=== PATIENT | female | born 1980 | race Caucasian/White ===

== ENCOUNTER → 2018-02-27 16:31 | Outpatient (REF) | payer MEDICAID, SELFPAY ==
[2018-03-01 11:19] LABS: Hep B Core Antibody Negative (NEGAT)
== END ==
LOC: NCHCN 16:31
PROVIDERS: PCP Family Medicine; Visit Provider Family Medicine
DX: B19.20 Unspecified viral hepatitis C without hepatic coma (principal)
CPT/HCPCS: 86704

== ENCOUNTER 2018-05-11 11:12 | Outpatient (REF) | payer MEDICAID, SELFPAY ==
[2018-05-11 14:02] LABS: HCT 43.3 % (36.0-46.0); HGB 14.6 g/dL (12.0-15.5); Mean Corp. HGB Concentration 33.7 g/dL (32.0-36.0); Mean Corpuscular Hemoglobin 31.2 pg (27.0-33.0); Mean Corpuscular Volume 92.5 fL (80-95); Mean Platelet Volume 13.2 fL (8.0-11.0); Platelet Count 120 x1000/uL (130-400); RBC 4.68 m/cumm (4.00-5.20); RBC Distribution Width 12.7 % (11.7-14.6); White Blood Cell Count 4.79 k/cumm (4.4-10.8)
[2018-05-11 14:30] LABS: ALT 17 U/L (12-78); AST 17 U/L (15-37); Albumin 3.7 g/dL (3.4-5.0); Alkaline Phosphatase 67 U/L (46-116); Anion Gap 10.2 mmol/L (3-11); BUN 7 mg/dL (7-18); Bilirubin, Total 0.9 mg/dL (0.2-1.0); CO2 27.8 mmol/L (21.0-32.0); CREATININE 0.71 mg/dL (0.55-1.02); Calcium 8.6 mg/dL (8.5-10.1); Chloride 99 mmol/L (98-107); Glucose 92 mg/dL (70-100); Potassium 3.8 mmol/L (3.5-5.1); Sodium 137 mmol/L (136-145); Total Protein 7.1 g/dL (6.4-8.2)
[2018-05-14 13:48] LABS: HCV RNA Detection Quantitative Undetected IU/mL (UNDECT)
== END 2018-05-11 11:32 ==
LOC: NCHCN 11:12
PROVIDERS: PCP Family Medicine; Visit Provider Family Medicine
DX: B19.20 Unspecified viral hepatitis C without hepatic coma (principal)
CPT/HCPCS: 80053; 85027; 87522

== ENCOUNTER 2020-03-20 21:41 | Outpatient (REF) | payer MEDICAID, SELFPAY ==
[2020-03-23 14:13] LABS: HCV RNA Qualitative Undetected (Undetected)
== END 2020-03-20 22:01 ==
LOC: NCHCN 21:41
PROVIDERS: PCP Family Medicine; Visit Provider Family Medicine
DX: B19.20 Unspecified viral hepatitis C without hepatic coma (principal)
CPT/HCPCS: 87522

== ENCOUNTER 2020-05-07 07:12 | Outpatient (CLI) | payer MEDICAID, SELFPAY ==
[2020-05-08 22:55] LABS: COVID-19 RT-PCR Result NEGATIVE (Negative)
== END 2020-05-07 07:32 ==
PROVIDERS: PCP Family Medicine; Visit Provider Otolaryngology Otolaryngology/Facial Plastic Surgery
DX: Z11.59 Encounter for screening for other viral diseases (principal); Z01.818 Encounter for other preprocedural examination
CPT/HCPCS: U0003

== ENCOUNTER 2020-05-11 06:12 | Day surgery (SDC) | payer MEDICAID, SELFPAY ==
[2020-05-11 06:13] VITALS: BP 95/65; PULSE 82; RESP 16; TEMP 36.7; O2SAT 96
[2020-05-11] MEDS: Lactated Ringers 1,000 ML 80 ML IV (06:47)
--- NOTE | 2020-05-11 07:34 | W.PM.DSUDISC ---
Discharge Plan Disposition Patient Disposition: HOME Condition: Good Discharge Details Reason For Visit: or Attending Provider: Mendez Brandon Primary Care Provider: Rome Pathak Home Meds and New Rx's Prescriptions: No Action trazodone 100 MG tablet 100 mg PO HS RF: 0 Flovent HFA 12 GM HFA aerosol inhaler 220 mcg Inhalation BID RF: 0 albuterol sulfate [ProAir HFA] 8.5 GM HFA aerosol inhaler 2 puff Inhalation Q4H PRN RF: 0 Nexplanon 68 MG implant 68 mg SQ ONCE Qty: 1 RF: 0 meloxicam 15 MG tablet 1 tab PO DAILY 30 Days Qty: 30 RF: 2 Vyvanse 30 MG capsule 70 mg PO HS RF: 0 buprenorphine-naloxone [Suboxone] 8-2 mg Film 2 film SUBLINGUAL DAILY RF: 0 Discharge Instructions Additional Instructions: see sheet Activity:: Activity as Tolerated Shower/Bathe:: 24 hours Diet:: As Tolerated DS: Diagnosis Discharge Diagnosis (1) Cyst, dermoid, face: Status: Acute
--- NOTE | 2020-05-11 08:07 | W.PM.OP ---
Date of service: 05/11/20 Time of Service: 08:00 Operative Note Operative Note DATE OF PROCEDURE: 05/11/20 PRE-OP DIAGNOSIS: Recurrent dermoid facial cyst Excision of facial cyst 2.2 cm intermediate closure SURGEON: Mendez Brandon ANESTHESIA: MAC ESTIMATED BLOOD LOSS: 1 PATHOLOGY: none sent COMPLICATIONS: None Patient was transported to: PACU Patient's condition: stable Indications: Patient with recurrent dermoid cyst of the left lateral lower lip, opted proceed with surgical removal, we proceeded with sedation based on patient preference Procedure Description: Patient was brought back to the operating suite in stable condition placed supine operative table and given IV monitored anesthesia care. 3 cc of 1% lidocaine with 1-100,000 epinephrine was injected into the left lower lip. Timeout was taken to confirm proper patient and procedure. Patient was prepped and draped in normal fashion. A 15 blade scalpel was used to excise the dermoid cyst, the cyst involve the orbicularis javi muscle, amputation at the base included bipolar cautery. Hemostasis achieved. Entire capsule was excised. Intermediate closure was performed with 4-0 Monocryl followed by 4-0 nylon. Patient tolerated the procedure well, total incision length was 2.2 cm. Stable to PACU
[2020-05-11 08:47] VITALS: BP 105/65; PULSE 55; RESP 16; TEMP 36.6; O2SAT 100
== END 2020-05-11 09:08 | disposition home or self-care (01) ==
PROVIDERS: PCP Family Medicine; Visit Provider Otolaryngology Otolaryngology/Facial Plastic Surgery
PROC: 0HB1XZZ Excision of Face Skin, External Approach (ICD-10-PCS; CPT 11443; principal; 2020-05-11 07:30)
DX: D23.0 Other benign neoplasm of skin of lip (principal); J45.909 Unspecified asthma, uncomplicated; F41.9 Anxiety disorder, unspecified
CPT/HCPCS: 11443; 12051; J0690; J2405; J2704

== ENCOUNTER 2020-09-22 15:05 | Outpatient (REF) | payer MEDICAID, SELFPAY ==
--- NOTE | 2020-09-22 14:40 | PAPFT_PTH ---
PATIENT: Germaine Mast LOC: [facility] U#:[id number] AGE/SX: 40/F ROOM: RE09/22/[address]: Azeb Kaye NP : 1980 BED: DIS: 09/22/2020 SPEC #: [id number] RECD: 09/22/20 17:25 STATUS: JAIME PICKETT #: [id number] GEM: 09/22/20 14:[address]: Azeb Kaye NP DEPT: [facility] Cytology RECD BY: Julia Yates ENTERED: 09/22/20 17:25 SP TYPE: PAPFT OTHR DR: Rome Pathak Tissues: 1 - CX/ENDOCX FOR PAP SMEARS Procedures: PAP THIN PREP/UVM Screening HPV DNA PROBE Comments: [id number] (CHLAMYDIA/GC)
[2020-09-23 14:21] LABS: Chlamydia Result Negative (Negative); GC Result Negative (Negative)
== END 2020-09-22 15:06 | disposition home or self-care (01) ==
LOC: LBN 15:05
PROVIDERS: PCP Family Medicine; Visit Provider Nurse Practitioner Women's Health
DX: R30.0 Dysuria (principal); Z11.3 Encounter for screening for infections with a predominantly sexual mode of transmission; Z12.4 Encounter for screening for malignant neoplasm of cervix; Z11.51 Encounter for screening for human papillomavirus (HPV)
CPT/HCPCS: 87077; 87491; 87591; 88142; 87086; 87186; 87624

== ENCOUNTER 2020-10-01 01:31 | Outpatient (CLI) | payer MEDICAID, SELFPAY ==
--- NOTE | 2020-10-01 09:00 | DI.MAMMO_ITS ---
EXAM: MG MAMMO SCREENING CLINICAL HISTORY: screening,Z12.39. TECHNIQUE: Bilateral full field digital CC and MLO mammographic images were obtained with 3D tomosyn thesis and utilizing computer aided detection (CAD). COMPARISON: None. Baseline study. FINDINGS: There is a lobulated noncalcified nodule right breast measuring 9 by 9 millimeters, medial of center. No malignant-appearing microcalcification groups at this location or elsewhere in either breast. No focal findings in the opposite-left breast. There is no significant architectural distortion nor skin thickening-retraction. IMPRESSION: There is a right breast nodule measuring 9 x 9 millimeters. Spot compression view and ultrasound rec ommended to determine if this is solid or cystic. BI-RADS Category 0 - Assessment Incomplete: Need additional imaging evaluation Breast Density - Category C - Heterogeneously dense Breast density Category C or D implies that the patient has dense breast tissue. Dense breast tissue can make it harder to find cancer on a mammogram. Dense breast tissue is also associated with an incr eased risk of breast cancer. This information about the result of the mammogram report was provided to the patient to raise their awareness. Use this report when you speak with the patient about their risks for breast cancer, which includes their family history. At that time, you may recommend additional screening tests (Ultrasoun d or MRI) as these tests may add significant information. A negative radiographic report should not delay biopsy if a dominant or clinically suspicious mass is present. Up to ten percent of cancers are not identified on mammography. A negative report may reinforce clinical impression. Adenosis and dense breasts may obscure an underlying neoplasm. False positive reports average 6 to 10%. Patient will receive a letter notifying them of these results.
== END 2020-10-01 01:51 ==
PROVIDERS: PCP Family Medicine; Visit Provider Nurse Practitioner Women's Health
DX: Z12.31 Encounter for screening mammogram for malignant neoplasm of breast (principal); N63.10 Unspecified lump in the right breast, unspecified quadrant
CPT/HCPCS: 77063; 77067

== ENCOUNTER 2020-10-01 02:48 | Outpatient (CLI) | payer MEDICAID, SELFPAY ==
[2020-10-02 09:34] LABS: HIV-1/2 Ag & Ab Screen Negative (Negative)
[2020-10-03 10:02] LABS: Syphilis Total Ab w/Reflex Nonreactive (Nonreactive)
== END 2020-10-01 02:49 | disposition home or self-care (01) ==
LOC: LBO 02:48
PROVIDERS: PCP Family Medicine; Visit Provider Nurse Practitioner Women's Health
DX: Z11.3 Encounter for screening for infections with a predominantly sexual mode of transmission (principal); Z11.4 Encounter for screening for human immunodeficiency virus [HIV]
CPT/HCPCS: 36415; 87389; 86780

== ENCOUNTER 2020-10-09 03:32 | Outpatient (CLI) | payer MEDICAID, SELFPAY ==
--- NOTE | 2020-10-09 14:40 | DI.MAMMO_ITS ---
EXAM: MG MAMMO SCREEN CALL BACK UNI CLINICAL HISTORY: F/U MAMMO, RT BREAST NODULE, TECHNIQUE: Mammograms were interpreted according to the usual protocol including computer analysis w [employer] CAD system, tomosynthesis and C-view imaging. COMPARISON: FINDINGS: Additional mammographic graphic views of the right breast and right breast ultrasound are interpreted in conjunction. These examinations were obtained to evaluate a medial retroareolar mass of the righ t breast noted on recent mammogram. Spot compression views confirm a fairly well-circumscribed mass as noted on the initial screening examinations. Breast ultrasound shows a taller than wide [address] in greatest diameter hypoechoic mildly heterogeneous mass located in the 2 o'clock position 2 cm from the nipple. This shows no significant internal vascular flow on Doppler evaluation. The appearance of the lesion is indeterminate for malignancy ultrasonographically. Biopsy is recomme nded which may be accomplished utilizing ultrasound-guided biopsy. IMPRESSION: Biopsy recommended for medial retroareolar right breast mass as described above. Findings were relay ed to Ashanti Koo, Nurse Practitioner. BI-RADS Category 4 - Suspicious Abnormality: Biopsy should be considered Breast Density - Category C - Heterogeneously dense
== END 2020-10-09 03:52 ==
PROVIDERS: PCP Family Medicine; Visit Provider Nurse Practitioner Women's Health
DX: Z12.31 Encounter for screening mammogram for malignant neoplasm of breast (principal); R92.8 Other abnormal and inconclusive findings on diagnostic imaging of breast; N63.12 Unspecified lump in the right breast, upper inner quadrant
CPT/HCPCS: 76642; 77063; 77067

== ENCOUNTER 2020-10-23 04:02 | Outpatient (CLI) | payer MEDICAID, SELFPAY ==
--- NOTE | 2020-10-23 | DI.US_ITS ---
EXAM: RT BREAST MASS, ULTRASOUND GUIDED CORE NEEDLE BX COMPARISON: US US BREAST RT LIMITED from 10/09/2020 TECHNIQUE: Ultrasound performed using standard protocol. FINDINGS: Sonography was provided for Dr. Ceballos during the performance of a right breast biopsy. Please ref er to the procedure report for complete details. DATA REPOSITORY:
--- NOTE | 2020-10-23 08:10 | BREAST_PTH ---
PATIENT: Germaine Mast LOC: [facility] U#:[id number] AGE/SX: 40/F ROOM: RE10/23/[address]: Shantal Ceballos MD : 1980 BED: DIS: 10/23/2020 SPEC #: [id number] RECD: 10/23/20 12:43 STATUS: JAIME REQ #: [id number] GEM: 10/23/20 08:[address]: Shantal Ceballos DEPT: Surgical Specimen RECD BY: Julia Yates ENTERED: 10/23/20 12:44 SP TYPE: Breast OTHR DR: Rome Pathak Tissues: 1 - BREAST BX NEEDLE Procedures: GROSS AND MICRO LEVEL 4 Comments: [id number]
--- NOTE | 2020-10-23 08:45 | W.PROCNOTE ---
Date of service: 10/23/20 Time of Service: 08:00 Procedure Note Date of procedure: 10/23/20 Procedure: Right Breast Core needle biopsy Surgeon/Proceduralist/Physician: Shantal Ceballos Procedure Diagnosis: Right Breast mass Procedure Indications: Mrs. Mast is a pleasant 40 year old female who underwent a screening mammogram and was noted to have a lesion. This was ultrasounded and revealed a 9 mm hypoechoic mildly heterogenous mass located at the 2 o'clock position 2 cm from the nipple. The appearance of the lesion was indeterminate for malignancy ultrasonographically. Biopsy was recommended by the radiologist. The patient is here today for the core needle biopsy under ultrasound guidance. I discussed with the patient the procedure in detail and reviewed risks and benefits. Her questions were entertained and she wished to proceed. The patient has an aunt with breast cancer. No first-degree relatives with breast cancer. She has not noted any skin changes. She does recall having some clear nipple discharge from the right and left breast a few months back. Procedure Description: Pre-op Dx: Right Breast Mass at 2 o'clock, 2 cm from the nipple Post-op Dx: same Procedure: US gided Core needle biopsy Surgeon: Demarcus Ceballos MD Anesthesia: Local anesthesia with 1% Lidocaine Blood loss: 2 cc Specimen: Core needle biopsy Complications: no immediate complications Procedure: After informed consent was obtained the patient was placed in a supine position. Us was done of the Breast and the lesion was localized by the US tech. The skin was cleaned with alcohol and infiltrated with the above local anesthetic. The skin was then prepped. An incision was made with an 11 blade. Using a 14 gauge core needle 2 specimens were removed and placed on telfa and placed in formalin. Under US guidence a small titanium clip was placed into the lesion. The skin was cleaned and dried and a band aid was applied. The patient tolerated the procedure well and there were no immediate complications.
== END 2020-10-23 04:22 ==
PROVIDERS: PCP Family Medicine; Visit Provider Surgery
DX: R92.8 Other abnormal and inconclusive findings on diagnostic imaging of breast (principal)
CPT/HCPCS: 19083; 88305; 76942

== ENCOUNTER 2021-03-19 14:40 | Outpatient (REF) | payer MEDICAID, SELFPAY ==
[2021-03-22 14:42] LABS: Chlamydia Result Negative (Negative); GC Result Negative (Negative)
== END 2021-03-19 14:41 | disposition home or self-care (01) ==
LOC: NCHCN 14:40
PROVIDERS: PCP Family Medicine; Visit Provider Physician Assistant
DX: N89.8 Other specified noninflammatory disorders of vagina (principal)
CPT/HCPCS: 87491; 87591; 87480; 87510; 87660

== ENCOUNTER 2021-09-15 00:48 | Outpatient (CLI) | payer MEDICAID, SELFPAY ==
--- NOTE | 2021-09-15 07:45 | DI.MAMMO_ITS ---
Exam(s) US BREAST RT COMPLETE MG MAMMO DIAGNOSTIC BI EXAM: MAMMO DIAGNOSTIC BI CLINICAL HISTORY: skin changes to R breast,r23.4,redness TECHNIQUE: Mammograms were interpreted according to the usual protocol including computer analysis w [employer] CAD system, tomosynthesis and C-view imaging. COMPARISON: FINDINGS: The bilateral mammogram and right breast ultrasound are interpreted in conjunction. The breasts are heterogeneously dense. A previously described medial retroareolar right breast mass seen on prior ma mmogram of September 2020 is essentially unchanged in appearance on today's examination mammographically. There is biopsy clip seen adjacent to the mass. On ultrasound examination, mass again measures abo ut 9 millimeters in diameter and is hypoechoic. No other mass identified in either breast. No clumped microcalcification is seen. IMPRESSION: Stable right breast mass as described above. Follow-up mammogram and ultrasound recommended in 12 mo nths. BI-RADS Category 2 - Benign Findings Breast Density - Category C - Heterogeneously dense
== END 2021-09-15 01:08 ==
PROVIDERS: PCP Family Medicine; Visit Provider Nurse Practitioner Women's Health
DX: R23.4 Changes in skin texture (principal); R92.8 Other abnormal and inconclusive findings on diagnostic imaging of breast
CPT/HCPCS: 76642; 77062; 77066; G0279

== ENCOUNTER 2022-11-26 12:46 | Outpatient (REF) | payer MEDICAID, SELFPAY | END 2022-11-26 12:47 | disposition home or self-care (01) | LOC: LBN 12:46 | PROVIDERS: PCP Family Medicine; Visit Provider Physician Assistant Medical | DX: L02.213 Cutaneous abscess of chest wall (principal) | CPT/HCPCS: 87077; 87070; 87186; 87205 ==

== ENCOUNTER 2023-04-18 15:09 | Outpatient (REF) | payer MEDICAID, SELFPAY ==
[2023-04-18 16:05] LABS: Calculated LDL 104 mg/dL (<100); Cholesterol 160 mg/dL (<200); HDL Cholesterol 46 mg/dL (40-60); Triglyceride 51 mg/dL (<150)
[2023-04-18 16:09] LABS: Abs Immature Grans 0.02 10^3/uL (0.0-0.06); Absolute Basophil Count 0.05 10^3/uL (0.0-0.2); Absolute Eosinophil Count 0.12 10^3/uL (0.0-0.7); Absolute Lymphocyte Count 1.78 10^3/uL (1.2-3.4); Absolute Monocyte Count 0.38 10^3/uL (0.1-0.8); Absolute Neutrophil Count 2.42 10^3/uL (1.2-6.7); Eosinophils % 2.5; HCT 42.5 % (36.0-46.0); HGB 13.9 g/dL (11.2-15.7); Immature Grans % 0.4; Lymphocytes % 37.3; MCH 30.8 pg (27.0-33.0); MCHC 32.7 % (32.0-36.0); MCV 94 fL (80-95); MPV 12.4 fL (8.0-11.0); Neutrophils % 50.8; Platelet Count 142 10^3/uL (130-400); RBC 4.51 10^6/uL (3.93-5.22); RDW 12.4 % (11.7-14.6); RDW-SD 43.4 fL; WBC 4.77 10^3/uL (4.4-10.8)
[2023-04-18 17:49] LABS: Hemoglobin A1C 5.5 % (<5.7)
[2023-04-19 12:00] LABS: HIV-1/2 Ag & Ab Screen Negative (Negative)
== END 2023-04-18 15:10 | disposition home or self-care (01) ==
LOC: NCHCN 15:09
PROVIDERS: PCP Family Medicine; Visit Provider Family Medicine
DX: K65.1 Peritoneal abscess (principal); Z11.4 Encounter for screening for human immunodeficiency virus [HIV]; Z13.1 Encounter for screening for diabetes mellitus; Z13.220 Encounter for screening for lipoid disorders
CPT/HCPCS: 80061; 87077; 87389; 83036; 85025; 87070; 87186; 87205

== ENCOUNTER 2023-04-21 02:46 | Outpatient (CLI) | payer MEDICAID, SELFPAY ==
[2023-04-21] MEDS: Levalbuterol HFA 15 GM INH 4 PUFF IH (14:25)
[2023-04-21] MEDS: Inhaler, Assist Device 1 EACH MC (14:25)
--- NOTE | 2023-04-28 16:07 | W.PFT ---
Date of service: 04/21/23 Time of Service: 13:06 Pulmonary Function Test Result Indications: Asthma Interpretation Spirometry: There is no airflow limitation. There is no significant bronchodilator response. Lung Volumes: There is hyperinflation and air trapping. Diffusion Capacity: Normal diffusion Airway Pressure: Normal airways resistance Impression There is hyperinflation and air trapping. This can be seen in asthma. Clinical Correlation therefore is recommended.
== END 2023-04-21 02:47 | disposition home or self-care (01) ==
LOC: RT 02:47
PROVIDERS: PCP Family Medicine; Visit Provider Family Medicine
DX: J45.41 Moderate persistent asthma with (acute) exacerbation (principal); F17.210 Nicotine dependence, cigarettes, uncomplicated
CPT/HCPCS: 94060; 94726; 94729

== ENCOUNTER → 2023-08-08 03:08 | Outpatient (CLI) | payer MEDICAID, SELFPAY ==
--- NOTE | 2023-08-08 07:00 | DI.US_ITS ---
Exam(s) US PELVIS TRANSVAGINAL EXAM: US PELVIS TRANSVAGINAL CLINICAL HISTORY: check ovaries,PELVIC PAIN, R10.2. TECHNIQUE: Transabdominal and transvaginal pelvic ultrasound was performed using standard protocol. COMPARISON: US SURVEY*(P) from 10/04/2011 FINDINGS: UTERUS: Position: Anteverted. Size: 7.8 long by 4.0 AP by 5.7 transverse cm Endometrium: 0.4 cm. Normal for patient's menstrual status. Myometrium: Unremarkable. Cervix: Unremarkable. OVARIES: Right: 4.1 x 2.8 x 2.8 cm Cyst or mass: No suspicious cystic or solid masses. There is a 3.7 x 1.6 x 2.4 cm cyst on the right ovary. There is a thin septation versus 2 adjacent cysts. Left: 1.8 x 1.8 x 1 cm Cyst or mass: No suspicious cystic or solid masses. DOPPLER: Color: Symmetric and uniform flow to both ovaries. CUL-DE-SAC: Free fluid: None. Other: None. IMPRESSION: 1. Normal-appearing uterus with endometrial stripe within normal limits. 2. In the right ovary, there is a 3.7 x 1.6 x 2.6 cm septated cyst versus 2 adjacent simple cysts. 3. The left ovary is unremarkable. DATA REPOSITORY:
== END ==
PROVIDERS: PCP Family Medicine; Visit Provider Obstetrics & Gynecology
DX: R10.2 Pelvic and perineal pain (principal); N83.291 Other ovarian cyst, right side
CPT/HCPCS: 76830; 76856

== ENCOUNTER → 2023-10-10 01:44 | Outpatient (CLI) | payer MEDICAID, SELFPAY ==
--- NOTE | 2023-10-10 07:15 | DI.US_ITS ---
Exam(s) US PELVIS TRANSVAGINAL EXAM: US PELVIS TRANSVAGINAL CLINICAL HISTORY: F/U LT OVARIAN CYST,N83.202,PRESENCE OF IUD,Z97.5. TECHNIQUE: Transabdominal and transvaginal pelvic ultrasound was performed using standard protocol. COMPARISON: US US PELVIS TRANSVAGINAL from 08/08/2023 FINDINGS: UTERUS: Position: Anteverted. Size: 8.1 long by 3.6 AP by 5.2 transverse cm Endometrium: 0.3 cm. Normal for patient's menstrual status. Myometrium: Unremarkable. Cervix: Unremarkable. OVARIES: Right: 2.8 x 1.1 x 1.6 cm Cyst or mass: No suspicious cystic or solid masses. Left: 3.9 x 2.4 x 2.6 cm Cyst or mass: No suspicious cystic or solid masses. There is a septated cyst or 2 adjacent cysts pre sent. They measure in aggregate 2.4 x 2.6 cm. No suspicious cysts are seen in the left ovary. DOPPLER: Color: Symmetric and uniform flow to both ovaries. CUL-DE-SAC: Free fluid: None. Other: There prominent parametrial vessels which can be seen with pelvic congestion syndrome. IMPRESSION: 1. Normal-appearing uterus with endometrial stripe within normal limits. 2. Unremarkable bilateral ovaries. Left ovarian septated cyst measuring 2.4 x 2.6 cm. 3. Prominent parametrial vessels which may reflect pelvic congestion syndrome. DATA REPOSITORY:
== END ==
PROVIDERS: PCP Family Medicine; Visit Provider Obstetrics & Gynecology
DX: N83.202 Unspecified ovarian cyst, left side (principal); Z97.5 Presence of (intrauterine) contraceptive device
CPT/HCPCS: 76830; 76856

== ENCOUNTER 2024-03-20 15:29 | Emergency (ER) | payer MEDICAID, SELFPAY ==
--- NOTE | 2024-03-20 15:45 | RT.EKG_ITS ---
APPROVED REPORT Exam: Resting ECG Reason for Exam: Heart palps Patient Location: E HR:79 bpm ECG Measurements Heart Rate [address] 123 P 75 QRSd 96 QRS 75 QT 376 T 38 QTc 432 Conclusion Sinus rhythm...normal P axis, V-rate 60- 99 I have reviewed and interpreted ECG and agree with software generated interpretation.
[2024-03-20 15:47] VITALS: BP 136/88; PULSE 86; RESP 16; TEMP 36.6; O2SAT 98
[2024-03-20 16:35] LABS: Abs Immature Grans 0.01 10^3/uL (0.0-0.06); Absolute Basophil Count 0.03 10^3/uL (0.0-0.2); Absolute Eosinophil Count 0.02 10^3/uL (0.0-0.7); Absolute Lymphocyte Count 0.26 10^3/uL (1.2-3.4); Absolute Monocyte Count 0.25 10^3/uL (0.1-0.8); Absolute Neutrophil Count 3.74 10^3/uL (1.2-6.7); Basophils % 0.7 %; Eosinophils % 0.5 %; HCT 42.8 % (36.0-46.0); HGB 14.3 g/dL (11.2-15.7); Immature Grans % 0.2 %; MCH 30.7 pg (27.0-33.0); MCHC 33.4 % (32.0-36.0); MCV 92 fL (80-95); MPV 11.1 fL (8.0-11.0); Monocytes % 5.8 %; Neutrophils % 86.8 %; Platelet Count 127 10^3/uL (130-400); RBC 4.66 10^6/uL (3.93-5.22); RDW-SD 40.7 fL; WBC 4.31 10^3/uL (4.4-10.8)
[2024-03-20 16:52] LABS: INR 1.1 (0.9-1.1); PTT Activated 25.4 sec (23.6-32.8); Prothrombin Time 10.9 sec (9.1-11.1)
[2024-03-20 17:13] LABS: ALT 16 U/L (14-59); AST 22 U/L (15-37); Albumin 4.5 g/dL (3.4-5.0); Alkaline Phosphatase 42 U/L (46-116); Anion Gap 8.4 mmol/L (3-11); BUN 8 mg/dL (7-18); Bilirubin, Total 0.77 mg/dL (0.2-1.0); CO2 29.6 mmol/L (21.0-32.0); CREATININE 0.8 mg/dL (0.55-1.02); Calcium 9.6 mg/dL (8.5-10.1); Chloride 97 mmol/L (98-107); Glucose 86 mg/dL (74-106); Magnesium 1.7 mg/dL (1.8-2.4); NT-proBNP 551 pg/mL (<300); Sodium 135 mmol/L (136-145); TSH (W/Ref FT4) 0.64 uIU/mL (0.36-3.74); Total Protein 8.3 g/dL (6.4-8.2); Troponin I < 50 ng/L (< or =60)
[2024-03-20 17:24] LABS: D-Dimer 384 ng/mlFEU (<500)
--- NOTE | 2024-03-20 17:41 | ED.GENADUL_ITS ---
Discharge Plan Disposition Patient Disposition: Home Condition: Good Discharge Details Clinical Impression: Episodic peripheral vertigo, Hypomagnesemia Primary Care Provider: Cheko Roche ED Provider: Diogenes Bagley Home Meds and New Rx's Prescriptions: New meclizine 25 mg tablet 25 mg PO TID Qty: 30 0RF No Action fluticasone propionate [Flovent HFA] 12 GM HFA aerosol inhaler 220 mcg Inhalation BID Rx Instructions: Inhale 2 puffs by mouth twice daily. albuterol sulfate [ProAir HFA] 8.5 GM HFA aerosol inhaler 2 puff Inhalation Q4H PRN Nexplanon 68 MG implant 68 mg SQ ONCE Qty: 1 Rx Instructions: As reported by Pt. lisdexamfetamine [Vyvanse] 30 MG capsule 70 mg PO HS buprenorphine-naloxone [Suboxone] 8-2 mg Film 2 film SUBLINGUAL DAILY Discharge Instructions Instructions: Low Magnesium Level, Vertigo ED Additional Instructions: At this time your workup is returned reassuring. Your magnesium levels are slightly low. Please eat foods high in magnesium. Additionally please continue to stay well-hydrated. Please take the meclizine as prescribed to help with the dizziness. If you notice any worsening of your symptoms, or any new symptoms such as vomiting, diarrhea, fever, chills, shortness of breath, chest pain, numbness, weakness, or fainting , please return immediately to the emergency department for reevaluation. Please follow up with your primary care provider as soon as possible for reassessment and reevaluation. As always, it was a pleasure participating in your medical care today. Referrals: Cheko Roche [Primary Care Provider] - Discharge Data Discharge Date/Time-TO BE ENTERED AT DEPARTURE: 03/20/24 19:21 HPI General Date/Time Provider Initiated Documentation: 03/20/24 16:19 . HPI Narrative: This is a pleasant 43-year-old female with past medical history of GERD, ADHD, hepatitis C in the past, bipolar, PTSD, who presents today for evaluation of dizziness. Patient states that for the last week she has felt slightly dizzy. She states that when she bends over or stands up or turns her head quickly she feels like the room and world is spinning. It was worse today, and there was some vomiting. She has had a few episodes where this happens and get significantly worse and she has blackout like symptoms. She does not syncopized, but is very near syncopal. It is worse when she is moving and turning her head. She does admit to a very slight amount of chest achiness over the past week with this. She denies history of blood clots. She denies fever or chills. She denies numbness tingling or weakness. No trauma to the head. No other complaints at this time. She denies IV or illicit drug use, alcohol use, or tobacco use. She does admit to a slight ringing in her ears. Related Data Home Medications ?Medication ?Instructions ?Recorded ?Confirmed lisdexamfetamine 30 mg capsule 70 mg PO HS 03/25/15 03/20/24 (Vyvanse) albuterol sulfate 90 mcg/actuation 2 puff inhalation Q4H PRN 11/10/17 03/20/24 aerosol inhaler (ProAir HFA) fluticasone propionate 220 220 mcg inhalation BID 11/10/17 03/20/24 mcg/actuation HFA aerosol inhaler (Flovent HFA) etonogestrel 68 mg subdermal 68 mg SQ ONCE #1 implant 11/15/17 03/20/24 implant (Nexplanon) buprenorphine 8 mg-naloxone 2 mg 2 film sublingual DAILY 05/11/20 03/20/24 sublingual film (Suboxone) meclizine 25 mg tablet 25 mg PO TID #30 tabs 03/20/24 Previous Rx's ?Medication ?Instructions ?Recorded meclizine 25 mg tablet 25 mg PO TID #30 tabs 03/20/24 Allergies Allergy/AdvReac Type Severity Reaction Status Date / Time fluticasone Allergy Unknown Other (See Verified 03/20/24 15:54 Comment) milk AdvReac Mild Gastrointestinal Verified 03/20/24 15:54 problems General Stated Complaint: Palpitatns EZEKIEL: 3 Review of Systems All systems reviewed & are unremarkable except as noted in HPI and below Exam Narrative Exam Narrative: 1.Const: Well-nourished, Well-developed, appearing stated age 2.Eyes: PERRL, no conjunctival injection, and symmetrical lids. Patient does demonstrate horizontal unidirectional right-sided fatigable nystagmus. No rotatory or vertical nystagmus. Positive head impulse test at the right 3.ENT: Atraumatic external nose and ears. Moist MM. Neck: Symmetric, trachea midline, No thyromegaly. 4.CVS: +S1/S2, No murmurs or gallops. Peripheral pulses 2+ and equal in all extremities. Brisk capillary refill in all extremities. 5.RESP: Unlabored respiratory effort. Clear to auscultation bilaterally. No wheezes rales or rhonchi 6.GI: Soft, Nontender/Nondistended, No hepatosplenomegaly. No guarding or rebound. 7.MSK: Normocephalic/Atraumatic, Extremities w/o deformity or ttp No cyanosis or clubbing, Normal movement of all extremities 8.Skin: Warm, Dry. No rashes or lesions. 9.Neuro: manager chinese II-XII grossly intact. Sensation grossly intact, no focal neurologic deficits. All 6 cardinal planes of vision are fully intact. No evidence of rotatory or vertical nystagmus. The patient demonstrated a normal [id number], good dexterity. There was no evidence of dysdiadochokinesia. Patient was able to ambulate without difficulty. There was no wide-based gait. Romberg testing was normal. Lmal-jk-gdyw testing was normal. Sensation was intact bilaterally as well as muscle strength bilaterally for all extremities. Patient was able to verbalize butter cup with no slurring, or miss pronu nciation. Cerebellar function testing is normal. The patient demonstrates a normal hints exam with no findings concerning for a central event. No vertical nystagmus. The head impulse test is negative for any significant central abnormality. Normal test of skew. No suggestion of a central cerebellar event. Positive head impulse test to the right 10.Psych: (AAO) x3. Appropriate mood and affect Course Vital Signs Vital signs: Vital Signs Temperature 36.6 C 03/20/24 15:47 Pulse 86 03/20/24 15:47 Respiratory Rate 16 03/20/24 15:47 Blood Pressure 136/88 03/20/24 15:47 Pulse Oximetry 98 03/20/24 15:47 Temperature 36.6 C 03/20/24 15:47 Pulse 86 03/20/24 15:47 Respiratory Rate 16 03/20/24 15:47 Respiratory Effort Normal 03/20/24 15:53 Blood Pressure 136/88 03/20/24 15:47 Pulse Oximetry 98 03/20/24 15:47 Oxygen Delivery Method Room Air 03/20/24 15:47 Oxygen Flow Rate 0 03/20/24 15:47 Pain Level 0 03/20/24 15:47 Lab/Test Results Lab/Test Results: Laboratory Tests Range/Units 03/20/24 03/20/24 03/20/24 16:24 16:24 17:20 WBC (4.4-10.8) 10^3/uL 4.31 L RBC (3.93-5.22) 10^6/uL 4.66 Hgb (11.2-15.7) g/dL 14.3 Hct (36.0-46.0) % 42.8 MCV (80-95) fL 92 MCH (27.0-33.0) pg 30.7 MCHC (32.0-36.0) % 33.4 RDW (11.7-14.6) % 12.0 Plt Count (130-400) 10^3/uL 127 L MPV (8.0-11.0) fL 11.1 H Immature Gran % % 0.2 Neutrophils % % 86.8 Lymphocytes % % 6.0 Monocytes % % 5.8 Eosinophils % % 0.5 Basophils % % 0.7 Nucleated RBC % (0.0-0.3) % 0.0 Absolute Neutrophils (1.2-6.7) 10^3/uL 3.74 Absolute Lymphocytes (1.2-3.4) 10^3/uL 0.26 L Absolute Monocytes (0.1-0.8) 10^3/uL 0.25 Absolute Eosinophils (0.0-0.7) 10^3/uL 0.02 Absolute Basophils (0.0-0.2) 10^3/uL 0.03 PT (9.1-11.1) sec 10.9 INR (0.9-1.1) 1.1 APTT (23.6-32.8) sec 25.4 Cancelled D-Dimer (<500) ng/mlFEU 384 Sodium (136-145) mmol/L 135 L Potassium (3.5-5.1) mmol/L 4.0 Chloride (98-107) mmol/L 97 L Carbon Dioxide (21.0-32.0) mmol/L 29.6 Anion Gap (3-11) mmol/L 8.4 BUN (7-18) mg/dL 8 Creatinine (0.55-1.02) mg/dL 0.8 Est GFR (CKD-EPI 2020) (mL/min/1.73m2) 93.70 Glucose (74-106) mg/dL 86 Calcium (8.5-10.1) mg/dL 9.6 Magnesium (1.8-2.4) mg/dL 1.7 L Total Bilirubin (0.2-1.0) mg/dL 0.77 AST (15-37) U/L 22 ALT (14-59) U/L 16 Alkaline Phosphatase (46-116) U/L 42 L Troponin I High Sens (< or =60) ng/L < 50 Cancelled NT-Pro-B Natriuret Pep (<300) pg/mL 551 H Total Protein (6.4-8.2) g/dL 8.3 H Albumin (3.4-5.0) g/dL 4.5 TSH (0.36-3.74) uIU/mL 0.64 Range/Units 03/20/24 19:20 WBC (4.4-10.8) 10^3/uL RBC (3.93-5.22) 10^6/uL Hgb (11.2-15.7) g/dL Hct (36.0-46.0) % MCV (80-95) fL MCH (27.0-33.0) pg MCHC (32.0-36.0) % RDW (11.7-14.6) % Plt Count (130-400) 10^3/uL MPV (8.0-11.0) fL Immature Gran % % Neutrophils % % Lymphocytes % % Monocytes % % Eosinophils % % Basophils % % Nucleated RBC % (0.0-0.3) % Absolute Neutrophils (1.2-6.7) 10^3/uL Absolute Lymphocytes (1.2-3.4) 10^3/uL Absolute Monocytes (0.1-0.8) 10^3/uL Absolute Eosinophils (0.0-0.7) 10^3/uL Absolute Basophils (0.0-0.2) 10^3/uL PT (9.1-11.1) sec INR (0.9-1.1) APTT (23.6-32.8) sec D-Dimer (<500) ng/mlFEU Sodium (136-145) mmol/L Potassium (3.5-5.1) mmol/L Chloride (98-107) mmol/L Carbon Dioxide (21.0-32.0) mmol/L Anion Gap (3-11) mmol/L BUN (7-18) mg/dL Creatinine (0.55-1.02) mg/dL Est GFR (CKD-EPI 2020) (mL/min/1.73m2) Glucose (74-106) mg/dL Calcium (8.5-10.1) mg/dL Magnesium (1.8-2.4) mg/dL Total Bilirubin (0.2-1.0) mg/dL AST (15-37) U/L ALT (14-59) U/L Alkaline Phosphatase (46-116) U/L Troponin I High Sens (< or =60) ng/L Cancelled NT-Pro-B Natriuret Pep (<300) pg/mL Total Protein (6.4-8.2) g/dL Albumin (3.4-5.0) g/dL TSH (0.36-3.74) uIU/mL Medical Decision Making This is a pleasant 43-year-old female with past medical history of GERD, ADHD, hepatitis C in the past, bipolar, PTSD, who presents today for evaluation of dizziness. Patient states that for the last week she has felt slightly dizzy. She states that when she bends over or stands up or turns her head quickly she feels like the room and world is spinning. It was worse today, and there was some vomiting. She has had a few episodes where this happens and get significantly worse and she has blackout like symptoms. She does not syncopized, but is very near syncopal. It is worse when she is moving and turning her head. She does admit to a very slight amount of chest achiness over the past week with this. She denies history of blood clots. She denies fever or chills. She denies numbness tingling or weakness. No trauma to the head. No other complaints at this time. She denies IV or illicit drug use, alcohol use, or tobacco use. She does admit to a slight ringing in her ears. Exam demonstrates well-appearing female, dry mucous membranes, horizontal unidirectional fatigable nystagmus to the right, positive head impulse test to the right. Negative test of skew. Symptoms appear clinically and consistent with cerebellar infarct or stroke. No headache to suggest bleed. No neurologic deficits on exam. I suspect symptomatology is secondary to peripheral vertigo given clinical assessment and exam findings at this time. No indication for other life-threatening ischemic or hemorrhagic etiology intracranially. However electrolyte abnormality and cardiac dysrhythmias on the differential as well as PE albeit notably less likely. Will evaluate for these, monitor closely and reassess. 5:46 PM Patient demonstrates no evidence of anemia, D-dimer is normal, electrolytes demonstrate a benign potassium of 4, benign sodium of 135, magnesium is minimally low at 1.7. Will correct this. She has received a liter of lactated Ringer's. proBNP minimally elevated at 550, no evidence of florid edema or CHF. Thyroid function normal, TSH normal. Patient feels much improved after oral meclizine and fluids. With no evidence of significant life-threatening etiology, I do not see an indication for further imaging. I do recommend cont inued hydration at home, meclizine for the next week, avoidance of caffeinated products. Discussed red flags for which to return. Symptoms consistent with benign paroxysmal positional vertigo at this time. Patient's [place] syncope rule is in the low risk category. No indication for admission. I have extensively reviewed the treatment plan and discharge instructions with the patient. I have addressed all patient concerns at this time. The patient was made aware of what symptoms to monitor for that would warrant a return to the emergency department. Discussed the plan with the patient, they demonstrate verbal understanding and agreement with our assessment and plan at this time. The documentation in this chart was dictated using [employer] dictation software. Please excuse any dictation errors. Quality:SDOH Health Related Social Needs: No Data to Display PFSH All Active Problems (Updated 03/20/24 @ 17:48 by Diogenes Bagley DO) Hypomagnesemia (Acute) Episodic peripheral vertigo (Acute) Encounter for removal and reinsertion of Nexplanon (Acute) Left ovarian cyst (Acute) Pelvic pain (Acute) Breast skin changes (Acute) Urge incontinence of urine (Acute) Presence of subdermal contraceptive implant (Acute 10/06/20) Dermoid cyst (Acute) Cyst, dermoid, face (Acute) Anxiety (Chronic) History of hepatitis C (Acute) Substance use disorder (Acute) remission on suboxone Medical History GERD (gastroesophageal reflux disease) ADHD (attention deficit hyperactivity disorder) Lumbar back pain Hepatitis C Per pt. tx with Mavret, states she no longer has this BMI 36.0-36.9,adult OCD (obsessive compulsive disorder) Rash Bipolar disorder Narcotic abuse per pt. states she has been clean for 15 years Allergic asthma Radiculopathy of lumbar region PTSD (post-traumatic stress disorder) Insomnia Narcotic withdrawal Social History Smoking/Tobacco Use Status: Current every day Smoking risk assessment performed?: Yes Alcohol Intake: never Drug use: Current Sobriety Substance use type: former substance user Details: 15 years sober Do you feel safe at home: Yes Do you feel safe in your relationship?: Yes Female Reproductive History Menstrual control method: implanted History History 9 Para 5 Hx # Term Pregnancies Multiple births Hx # Pregnancies Ectopic pregnancies AB induced 1 Hx Number of Living Children AB spontaneous 3
[2024-03-20] MEDS: Meclizine 25 MG TAB PO (18:14)
[2024-03-20] MEDS: Lactated Ringers 1,000 ML 1000 ML IV (18:14)
[2024-03-20] MEDS: MAGNESIUM SULFATE 1 GM/100 ML BAG IVINF (18:14)
[2024-03-20 19:21] VITALS: BP 133/91; PULSE 76; RESP 22; TEMP 36.6; O2SAT 98
== END 2024-03-20 19:21 | disposition home or self-care (01) ==
PROVIDERS: Emergency Provider Student in an Organized Health Care Education/Training Program; PCP Student in an Organized Health Care Education/Training Program
DX: R42 Dizziness and giddiness (principal); E83.42 Hypomagnesemia; F17.200 Nicotine dependence, unspecified, uncomplicated
CPT/HCPCS: 80053; 81025; 93005; 96365; 99284; 83735; 83880; 84443; 84484; 85025; 85379; 85610; 85730; 93010; J3475

== ENCOUNTER 2024-05-08 01:55 | Outpatient (CLI) | payer MEDICAID, SELFPAY ==
--- NOTE | 2024-05-08 | DI.MAMMO_ITS ---
Exam(s) MAMMO SCREENING EXAM: MAMMO SCREENING CLINICAL HISTORY: SCREENING, Z12.31. TECHNIQUE: Bilateral full field digital CC and MLO mammographic images were obtained with 3D tomosyn thesis and utilizing computer aided detection (CAD). COMPARISON: Prior mammograms were reviewed. FINDINGS: Fibroglandular tissue pattern is again noted be moderately dense. No new left breast findings. The right breast the previously described medial of center nodule is unchanged in size from 2020. Th is has undergone ultrasound-guided biopsy 10/23/2020. There is a biopsy marker clip adjacent to this nodule again evident. There is no significant architectural distortion nor skin thickening-retraction. IMPRESSION: Stable benign-appearing findings. No radiographic evidence of malignancy. BI-RADS Category 2 - Benign Findings Breast Density - Category C - Heterogeneously dense Breast density Category C or D implies that the patient has dense breast tissue. Dense breast tissue can make it harder to find cancer on a mammogram. Dense breast tissue is also associated with an incr eased risk of breast cancer. This information about the result of the mammogram report was provided to the patient to raise their awareness. Use this report when you speak with the patient about their risks for breast cancer, which includes their family history. At that time, you may recommend additional screening tests (Ultrasoun d or MRI) as these tests may add significant information. A negative radiographic report should not delay biopsy if a dominant or clinically suspicious mass is present. Up to ten percent of cancers are not identified on mammography. A negative report may reinforce clinical impression. Adenosis and dense breasts may obscure an underlying neoplasm. False positive reports average 6 to 10%. Patient will receive a letter notifying them of these results.
== END 2024-05-08 02:15 ==
LOC: DI 01:55
PROVIDERS: PCP Student in an Organized Health Care Education/Training Program; Visit Provider Student in an Organized Health Care Education/Training Program
DX: Z12.31 Encounter for screening mammogram for malignant neoplasm of breast (principal)
CPT/HCPCS: 77063; 77067

== ENCOUNTER 2024-08-19 13:20 | Outpatient (REF) | payer MEDICAID, SELFPAY ==
[2024-08-19 22:39] LABS: Rheumatoid Factor <8.6 IU/mL (<12.0)
[2024-08-20 10:27] LABS: Cyclic Citrullinated Peptide <2.5 U/mL (<5.0)
[2024-08-20 12:06] LABS: dsDNA Ab, IgG <22.0 IU/mL (<27.0)
[2024-08-20 12:50] LABS: ANA Interpretation Positive (Negative); ANA Titer Pattern 1:160 Speckled
[2024-08-21 11:47] LABS: Centromere Ab, IgG <0.2 U (<1.0 (Neg)); Scl 70 Antibodies, IgG <0.2 U
== END 2024-08-19 13:21 | disposition home or self-care (01) ==
LOC: NCHCN 13:20
PROVIDERS: PCP Student in an Organized Health Care Education/Training Program; Visit Provider Student in an Organized Health Care Education/Training Program
DX: R22.33 Localized swelling, mass and lump, upper limb, bilateral (principal)
CPT/HCPCS: 86200; 83520; 86038; 86225; 86235; 86431